=== PATIENT | male | born 1975 | race Caucasian/White ===

== ENCOUNTER 2021-03-04 06:40 | Emergency (ER) | payer BC ==
[~2021-03-04] VITALS: Ht 175.3 cm; Wt 113.4 kg
== END 2021-03-04 12:10 | disposition home or self-care (01) ==
LOC: ER1 06:40
DX: U07.1 COVID-19 (principal); J12.82 Pneumonia due to coronavirus disease 2019; Z88.0 Allergy status to penicillin; Z23 Encounter for immunization
CPT/HCPCS: 0240U; 71045; 93005; 99284; M0243